=== PATIENT | female | born 1980 | race Caucasian/White ===

== ENCOUNTER 2020-11-03 15:50 | Outpatient (CLI) | payer OTHER, SELFPAY ==
--- NOTE | ~2020-11-03 | MR_ITS ---
EXAMINATION: MR knee LT wo con DATE: 11/03/2020 16:57 INDICATION: Left knee pain TECHNIQUE: Magnetic resonance imaging (MRI) of the left knee was performed without intravenous contra st. Sequences included coronal PD-weighted FSE, coronal PD-weighted FS FSE, sagittal T2-weighted FSE , sagittal PD-weighted FS FSE and axial PD weighted fat saturated FSE. COMPARISON: Left knee radiographs dated 10/27/2020 FINDINGS: Medial compartment: Medial meniscus is normal. Articular cartilage is normal. Lateral compartment: Lateral meniscus is normal. Articular cartilage is normal. Patellofemoral compartment: Small region of full-thickness chondral ulceration with mild atelectasis subchondral cystic change at the caudal aspect of the lateral patellar facet. Additional partial thickness chondral ulceration an d deep fissuring with underlying subarticular cystic changes along the more cephalad medial patellar facet and apical ridge. Deep chondral fissuring with underlying mild cortical irregularity and subart icular cystic change at the caudal aspect of the medial trochlea. Ligaments and tendons: Anterior and posterior cruciate ligaments are normal. The medial collateral ligament and fibular kaur ateral ligament complex are normal. The extensor mechanism is normal. The visualized medial and later al hamstring tendons as well as the iliotibial band are normal. Fluid: Physiologic amount of fluid in the joint space. No loose osteochondral bodies identified. Osseous/other: Bone alignment is normal. No fracture or pathologic marrow replacing process. IMPRESSION: 1. 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 Reviewed, dictated and finalized at location B. [facility]
== END 2020-11-03 15:51 | disposition home or self-care (01) ==
PROVIDERS: Visit Provider Orthopaedic Surgery
DX: M22.42 Chondromalacia patellae, left knee (principal)
CPT/HCPCS: 73721

== ENCOUNTER → 2020-11-26 02:28 | Outpatient (CLI) | payer OTHER, SELFPAY ==
[2020-11-26 20:22] LABS: SARS-CoV-2 RNA PCR Negative
== END ==
PROVIDERS: Visit Provider Orthopaedic Surgery
DX: Z01.812 Encounter for preprocedural laboratory examination (principal); Z20.822 Contact with and (suspected) exposure to COVID-19
CPT/HCPCS: C9803; U0003; U0005

== ENCOUNTER 2020-11-29 00:50 | Day surgery (SDC) | payer OTHER, SELFPAY ==
[2020-11-18 14:10] VITALS: BMI 18.5
--- NOTE | 2020-11-28 11:10 | P.PNAN_ITS ---
Anes - Initial Pre Proc Eval Procedure: Operation Date: 11/29/20 10:30 Proposed Procedures p Left Knee Arthroscopy With Possible Lateral Release, Proceed As Indicated - Amador Mcghee MD Date/Time: 11/28/20 11:10 Surgeon: Amador Mcghee MD Pre Op Diagnosis: left knee chondromalacia Patient Data Age: 40 Gender: F Height: 1.68 m Weight: 52 kg Allergies Allergy/AdvReac Type Severity Reaction Status Date / Time No Known Allergies Allergy Verified 11/29/20 09:00 Home Medications Medication Instructions Recorded Confirmed Type No Home Medications 11/18/20 11/29/20 History Patient hx anesthesia problems: none Family hx anesthesia problems: none [facility] Surgical History Surgical History (Updated 10/27/20 @ 15:45 by Zulema Manuel RT(R)) History of History of cholecystectomy Family History Family History (Updated 10/27/20 @ 15:45 by Zulema Manuel RT(R)) Other Hypertension Social History Social History (Updated 10/27/20 @ 15:45 by Zulema Manuel RT(R)) Smoking status: Never smoker Second hand tobacco smoke exposure: No Alcohol intake: never Substance use: never Substance use type: does not use Living arrangements: with family Gender identity (if verbalized by the patient): Female Anes - Eval Final PreProcedure Day of Procedure 11/28/20 11:10 Patient weight: normal Heart: regular rate and rhythm Lungs: clear to auscultation and normal air movement Airway: Mallampati scale class II Neurological: alert and oriented Last oral intake: >/= 8 hours ASA classification: I Emergent: no Anesthetic plan: proceed Anesthesia type and monitoring: general LMA Informed Consent: The patient's anesthetic plan and its attendant risks and benefits were discussed with the patient/family/POA. Questions were solicited and answers provided to the satisfaction of the patient/family/POA.
[2020-11-29] VITALS (10 sets, daily range): BP systolic 101–123; BP diastolic 60–83; PULSE 60–76; RESP 12–18; TEMP 36.3–37.5; O2SAT 100
--- NOTE | 2020-11-29 07:23 | WPDHPUPDATE1 ---
History and Physical Update Update Date/Time: 11/29/20 07:23 History and Physical has been reviewed, including an updated exam of the patient. There are NO changes in the patient's condition. Risks, benefits, and alternatives have been discussed and questions answered. Patient agrees to proceed with procedure.
[2020-11-29] MEDS: CELECOXIB 200 MG CAPSULE PO (09:00)
[2020-11-29] MEDS: ACETAMINOPHEN 500 MG TABLET 1000 MG PO (09:01)
[2020-11-29] MEDS: LACTATED RINGERS 1,000 ML 30 ML IV CONT ×2 (09:33→12:19)
--- NOTE | 2020-11-29 09:59 | SUR.PREOP ---
crutch training completed. written instructions given to patient for reference.
[2020-11-29] MEDS: ceFAZolin 2 GM/D5W 50 ML 2 GM/50 ML BAG IVPB (10:54)
[2020-11-29] MEDS: BUPIVACAINE HCL 0.5% PF 30 ML VIAL INFILTRATE (11:11)
--- NOTE | 2020-11-29 12:26 | PM.PROC ---
Procedure Note - Detailed Date of procedure: 11/29/20 Pre-op diagnosis: left knee chondromalacia Post-op diagnosis: same Procedure performed: LEFT KNEE SCOPE WITH CHONDROPLASTY AND MINOR SYNOVECTOMY Description of procedure: PATIENT WAS TAKEN TO THE OR. LEFT LEG WAS PREPPED AND DRAPED STERILE. TROCARS WERE PLACED IN THE USUAL FASHION. CAMERA WAS INTRODUCED. THERE WAS SEVERE CHONDROMALACIA TO THE PATELLA. MOST OF THE LESION WAS ON THE PATELLAR SURFACE AND THERE WAS MINIMAL ON THE TROCHLEA. THERE WAS A FULL THICKNESS LESION ON THE MID TO LATERAL FACET. THERE WAS A NEAR FULL THICKNESS LESION ON THE SUPERIOR MEDIAL SURFACE OF THE MEDIAL FEMORAL CONDYLE. THERE WAS A LOT OF SYNOVITIS IN THIS COMPARTMENT WELL. THE MEDIAL COMPARTMENT WAS ENTERED. THERE WAS NO CHONDROMALACIA TO THE MEDIAL FEMORAL CONDYLE AND NO MEDIAL MENISCUS TEAR. THE ACL WAS INTACT. THE LATERAL MENISCUS WAS NOT TORN. THE LATERAL COMPARTMENT HAD NO CHONDROMALACIA. A SYNOVECTOMY WAS PREFORMED IN THE PATELLO FEMORAL JOINT THEN THE PATELLA AND TROCHLEA UNDERWENT CHONDROPLASTY. THE SURFACE WAS SMOOTH AND THE PATELLA TRACKED WITHOUT TILT. NEXT THE FULL THICKNESS LESION UNDERWENT CHONDROPLASTY. THE LESION MEASURED ABOUT 2 X 2 CM. LAURYN PICKS WERE THEN USED TO PREFORM AN ABRASION ARTHROPLASTY/MICRO FRACTURE TO THE SURFACE. THERE WAS GOOD BLEEDING BONE OBSERVED. THE INSTRUMENTS WERE REMOVED AFTER THOROUGH IRRIGATION OF THE KNEE JOINT. THE WOUNDS WERE APPROXIMATED WITH 4.0 NYLON. STERILE DRESSING WAS APPLIED. PATIENT WAS EXTUBATED. Anesthesia: GLMA Surgeon: Amador Mcghee MD Estimated blood loss (mL): 5 Complications: No immediate complications Condition: stable Disposition: PACU
[2020-11-29] MEDS: fentaNYL CITRATE INJ (*CRX) 100 MCG/2 ML VIAL 25 MCG IV PUSH ×5 (12:37→13:31)
[2020-11-29] MEDS: ONDANSETRON INJ 4 MG/2 ML VIAL IV PUSH (14:05)
--- NOTE | 2020-11-29 14:10 | SUR.PHASEII ---
DR. SMITH TALKING TO PT AND DAUGHTER.
[2020-11-29] MEDS: SCOPOLAMINE 1.5 MG PATCH TRANSDERM (14:27)
[2020-11-29] MEDS: KETOROLAC 30 MG/ML VIAL (*BKC) IV PUSH (15:03)
[2020-11-29] MEDS: HALOPERIDOL LACTATE 5 MG/ML VIAL 1 MG IV PUSH (15:08)
== END 2020-11-29 16:10 | disposition home or self-care (01) ==
PROVIDERS: Visit Provider Orthopaedic Surgery
PROC: (CPT 29870; principal; 2020-11-29 10:30)
DX: M94.262 Chondromalacia, left knee (principal); M65.862 Other synovitis and tenosynovitis, left lower leg
CPT/HCPCS: 29875; A9270; C9803; J0690; J1100; J1630; J1885; J2250; J2405; J2704; J3010; J7120; U0003; U0005